=== PATIENT | male | born 1960 | race Caucasian/White ===

== ENCOUNTER → 2017-01-04 | Outpatient (CLI) | payer BC ==
--- NOTE | 2017-01-04 12:15 | DIAGNOSTIC IMAGING REPORT ---
KUB HISTORY: Flank pain. N20.0 [id number] Renal cyst COMPARISON: Renal ultrasound outside hospital 07/16/2016. Outside hospital abdomen and pelvis CT 08/06/2014. FINDINGS: The bowel gas pattern is unremarkable. There are no dilated loops of small bowel to suggest an obstruction. The right renal shadow is mostly secured by overlying bowel gas. There are few punctate stones within the lower pole the left kidney with the largest measuring 3 mm. No ureteral calculi identified. No pneumoperitoneum or pneumatosis. IMPRESSION: 1. Left-sided nephrolithiasis. 2. No ureteral calculi. 3. The right renal shadow is essentially obscured by overlying bowel gas. Electronically signed by: Soren Sparks M.D. 01/04/2017 12:14 PM Dictated Date/Time: 01/04/2017 12:11 PM
== END | disposition home or self-care (01) ==
LOC: C.RAD 11:32
PROVIDERS: ATTEND Nurse Practitioner Family
DX: N20.0 Calculus of kidney (principal); N28.1 Cyst of kidney, acquired

== ENCOUNTER → 2017-01-08 | Outpatient (CLI) | payer BC ==
--- NOTE | 2017-01-08 15:49 | DIAGNOSTIC IMAGING REPORT ---
CT SCAN OF THE ABDOMEN AND PELVIS WITHOUT CONTRAST CLINICAL HISTORY: Flank pain. COMPARISON STUDY: 08/06/2014 TECHNIQUE: CT scan of the abdomen and pelvis was performed from the lung bases to the proximal femurs. Images are reviewed in the axial, sagittal, and coronal planes. IV contrast was not administered for this examination. CT DOSE: 572.42 mGy.cm FINDINGS: Lower chest: The heart is normal in size and configuration, without pericardial effusion. The lung bases and pleural spaces are clear. Liver: There is a subcentimeter hypodensity within left hepatic lobe, unchanged the prior study and likely representing a small cyst. Gallbladder: Unremarkable. Spleen: Normal in size and attenuation. Pancreas: Unremarkable. Adrenal glands: Unremarkable. Kidneys: 7 mm lower pole left renal calculus. There are 2 right renal calculi measuring 2 mm and 3 mm respectively. There is a stable area of parenchymal calcification involving the lateral aspect of the right kidney. There is no hydronephrosis. No ureteral calculi are visualized. Bowel: There are no transition zones indicate bowel obstruction. There is colonic diverticulosis. There are no acute peridiverticular inflammatory changes. There is a fluid-filled posterior gastric diverticulum. There is borderline distal esophageal wall thickening. The appendix appears normal. Peritoneum: There is no intraperitoneal free air or abdominal ascites. There is small fat-containing inguinal hernias. Vasculature: The abdominal aorta is normal in course and caliber. Adenopathy: None. Pelvic viscera: The bladder, and pelvic viscera are unremarkable. Skeletal structures: No destructive osseous lesions are seen. IMPRESSION: 1. No evidence of bowel obstruction. No evidence of free air. 2. Diverticulosis. No evidence of acute diverticulitis 3. Normal appendix 4. Bilateral nephrolithiasis. No ureteral or bladder calculi identified 5. Fluid-filled posterior gastric diverticulum 6. Borderline distal esophageal wall thickening Electronically signed by: Odell Reardon M.D. 01/08/2017 3:48 PM Dictated Date/Time: 01/08/2017 3:42 PM
== END | disposition home or self-care (01) ==
LOC: C.CTS 15:23
PROVIDERS: ATTEND Nurse Practitioner Family
DX: K57.90 Diverticulosis of intestine, part unspecified, without perforation or abscess without bleeding (principal); N20.0 Calculus of kidney